=== PATIENT | female | born 1995 | race Caucasian/White ===

== ENCOUNTER 2020-03-16 06:36 | Inpatient (IN) | payer BC ==
[2020-03-16 08:09] LABS: HEMOGLOBIN 9.3 gm/dl (12.3-15.3); RED BLOOD COUNT 3.85 M/UL (4.00-5.10); WHITE BLOOD COUNT 7.3 K/UL (4.5-11.0)
[2020-03-16] MEDS ORDERED: DOCUSATE SODIU100 MG PO (12:30)
[2020-03-16] MEDS ORDERED: IBUPROFEN600 MG PO (12:30)
[2020-03-17 06:41] LABS: HEMOGLOBIN 9.1 gm/dl (12.3-15.3)
[2020-03-17] MEDS ORDERED: HYDROCODON-ACE1 EAC4 PO (12:06)
[2020-03-17] MEDS ORDERED: FERROUS SULFAT325 M2 PO (12:06)
== END 2020-03-17 14:57 | disposition home or self-care (01) | DRG 805 ==
LOC: OB 06:36
PROVIDERS: Obstetrics & Gynecology; ADMIT Obstetrics & Gynecology
PROC: 10E0XZZ Delivery of Products of Conception, External Approach (ICD-10-PCS; principal; 2020-03-16)
PROC: 10907ZC Drainage of Amniotic Fluid, Therapeutic from Products of Conception, Via Natural or Artificial Opening (ICD-10-PCS; 2020-03-16)
PROC: 0HQ9XZZ Repair Perineum Skin, External Approach (ICD-10-PCS; 2020-03-16)
PROC: 8E0ZXY6 Isolation (ICD-10-PCS; 2020-03-16)
DX: O99.02 Anemia complicating childbirth (principal); U07.1 COVID-19; Z37.0 Single live birth; O98.52 Other viral diseases complicating childbirth; D64.9 Anemia, unspecified; Z3A.40 40 weeks gestation of pregnancy; O70.0 First degree perineal laceration during delivery; O48.0 Post-term pregnancy; Z28.09 Immunization not carried out because of other contraindication
CPT/HCPCS: 36415; 51702; 81001; 82800; 85014; 85018; 85025; J0595; J2405; J2590; J7120